=== PATIENT | female | born 1995 | race Two or more races ===

== ENCOUNTER 2024-05-13 19:16 | Emergency (ER) | payer SELFPAY ==
[~2024-05-13] VITALS: Ht 152.4 cm; Wt 52.2 kg
[2024-05-13 19:41] VITALS: BP 103/66; TEMP 98.1; O2SAT 99
== END 2024-05-13 21:06 | disposition left against medical advice (07) ==
LOC: ER 19:18
DX: M54.2 Cervicalgia (principal); M54.9 Dorsalgia, unspecified; M79.606 Pain in leg, unspecified; Z53.21 Procedure and treatment not carried out due to patient leaving prior to being seen by health care provider